=== PATIENT | male | born 1965 | race Caucasian/White ===

== ENCOUNTER 2018-07-21 12:52 | Emergency (ER) | payer MEDICAID ==
--- NOTE | 2018-07-21 14:59 | US ---
Testicular ultrasound: Multiple real-time images of the testicles were obtained. Testicles have a homogeneous ultrasound appearance. No intratesticular abnormality is seen. Both arterial and venous blood flow seen within the testicles. Multiple cystic areas are seen within around the right testicle. Normal epididymis is not seen and findings may represent numerous epididymal cysts and tubular dilatation. This finding measures 5.6 x 3.0 x 4.0 cm. Complicated hydroceles are seen on both sides. Left epididymis not definitely seen likely due to the complicated hydroceles. Testicular measurements: Right side: 5.2 x 2.7 x 3.9 cm Left testicle: 6.8 x 3.4 with 3.7 cm Impression: 1. Multiple cystic areas around the right testicle, right epididymis is not seen. The cystic areas may be epididymal in origin representing multiple epididymal cysts and tubular dilatation. Measurements as noted above. 2. Complicated bilateral hydroceles. 3. No intratesticular abnormality is seen. Diagnostic code #3
--- NOTE | 2018-07-21 15:33 | EDM.PDOC ---
ED HPI GENERAL MEDICAL PROBLEM - General Chief Complaint: Genitourinary Problem Stated Complaint: LEFT TESTICLE IS SWOLLEN Time Seen by Provider: 07/21/18 13:28 Source of Information: Reports: Patient, RN Notes Reviewed - History of Present Illness INITIAL COMMENTS - FREE TEXT/NARRATIVE: 52 year old male with onset of swelling L scrotum about 2 to 3 months ago. That has been worsening and has become much more swollen, uncomfortable the last 3 to 4 days. 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 The major discomfort is just "the swelling and the tightness of the skin" No fever/ chills, nausea or vomiting. No voiding sx. No sexual activity for several yrs so no STD concerns. Left Scrotum Pain Score (Numeric/FACES): 8 - Related Data Allergies Allergy/AdvReac Type Severity Reaction Status Date / Time No Known Allergies Allergy Verified 07/21/18 13:19 Home Meds: Home Meds Lisinopril 40 mg PO DAILY #30 tablet 07/21/18 [Rx] Naproxen [Naprosyn] 500 mg PO Q12HR #14 tab 07/21/18 [Rx] levoFLOXacin [Levaquin] 500 mg PO DAILY #10 tab 07/21/18 [Rx] Past Medical History HEENT History: Reports: Hard of Hearing Other HEENT History: wears reading glasses. Cardiovascular History: Reports: Hypertension Genitourinary History: Reports: UTI, Recurrent Other Genitourinary History: in childhood, UTI. Musculoskeletal History: Reports: Fracture - Infectious Disease History Infectious Disease History: Reports: Chicken Pox, Shingles - Past Surgical History Other HEENT Surgeries/Procedures: wisdom teeth removed. Musculoskeletal Surgical History: Reports: Other (See Below) Other Musculoskeletal Surgeries/Procedures:: R) foot, pinning. Social & Family History - Tobacco Use Smoking Status *Q: Current Some Day Smoker Years of Tobacco use: 4 Packs/Tins Daily: 0.2 Second Hand Smoke Exposure: Yes - Caffeine Use Caffeine Use: Reports: Coffee, Soda, Tea - Recreational Drug Use Recreational Drug Use: No ED ROS GENERAL - Review of Systems Review Of Systems: See Below Constitutional: Denies: Fever, Chills HEENT: Denies: Throat Pain Respiratory: Denies: Shortness of Breath Cardiovascular: Denies: Chest Pain GI/Abdominal: Denies: Abdominal Pain, Nausea, Vomiting : Reports: Other (severe swelling bilat scrotum that started 2 to 3 months ago , has become much worse this past week and especially past several days). Denies: Discharge, Dysuria, Hematuria, Urgency Skin: Reports: Erythema (L scrotum) Neurological: Reports: No Symptoms ED EXAM, RENAL/ - Physical Exam Exam: See Below General Appearance: Alert, No Apparent Distress Head: Atraumatic. No: Facial Swelling Neck: Supple Respiratory/Chest: No Respiratory Distress, Lungs Clear Cardiovascular: Regular Rate, Rhythm (Male) Exam: Scrotal Swelling (severe bilat), Scrotum Tenderness (L), Scrotum Tenderness (R), Testicular Tenderness (L). No: Testicular Mass Extremities: Normal Inspection. No: Pedal Edema, Leg Pain Course - Vital Signs Last Recorded V/S: Last Vital Signs Temp 98.3 F 07/21/18 16:10 Pulse 92 07/21/18 16:10 Resp 20 07/21/18 16:10 BP 177/127 H 07/21/18 16:15 Pulse Ox 97 07/21/18 16:10 - Orders/Labs/Meds Meds: Medications Discontinued Medications Generic Name Dose Route Start Last Admin Trade Name Freq PRN Reason Stop Dose Admin Levofloxacin 500 mg 07/21/18 16:03 07/21/18 16:15 Levaquin PO 07/21/18 16:04 500 mg ONETIME ONE Administration Lisinopril 40 mg 07/21/18 16:05 07/21/18 16:15 Prinivil PO 07/21/18 16:06 40 mg ONETIME ONE Administration - Re-Assessments/Exams Free Text/Narrative Re-Assessment/Exam: 07/23/18 14:25 US report states multiple cystic areas around the R testicle, cystic areas might be epididymal in origin. bilat hydrocele. Good arterial and venous blood flow both testicles. See Radiologist report for details. Departure - Departure Time of Disposition: 15:29 Disposition: Home, Self-Care 01 Condition: Fair Clinical Impression: Epididymal cyst, Hydrocele in adult Hypertension Qualifiers: Hypertension type: essential hypertension Qualified Code(s): I10 - Essential ( primary) hypertension - Discharge Information Prescriptions: Naproxen [Naprosyn] 500 mg PO Q12HR #14 tab levoFLOXacin [Levaquin] 500 mg PO DAILY #10 tab Lisinopril 40 mg PO DAILY #30 tablet Instructions: Hydrocele, Adult, Hypertension, [id number] Referrals: PCP,None [Primary Care Provider] - Forms: ED Department Discharge, ED Return to Work/School Form Additional Instructions: intermitent ice packs to try help get swelling down. levaquin antibiotic 500 mg daily for 10 days. Naprosyn 500 mg twice daily with food for and inflamation. Lisinopril 40 mg daily for Htn. See Dr Barrientos, Urologist this July 24 at the [facility] at 08:45 central time.
[2018-07-21] MEDS ORDERED: Levofloxacin 250 MG Tab PO ONE (16:03)
[2018-07-21] MEDS ORDERED: Lisinopril 20 MG Tab PO ONE (16:05)
== END 2018-07-21 16:20 | disposition home or self-care (01) ==
LOC: JD.ED 12:52
DX: N50.3 Cyst of epididymis (principal); N43.3 Hydrocele, unspecified; I10 Essential (primary) hypertension; F17.210 Nicotine dependence, cigarettes, uncomplicated
CPT/HCPCS: 76870; 93975; 99284; A9270; 99283